=== PATIENT | female | born 1960 | race Caucasian/White ===

== ENCOUNTER 2023-06-18 16:17 | Outpatient (CLI) | payer OTHER, SELFPAY ==
--- NOTE | ~2023-06-18 | XR_ITS ---
EXAM: XR tibia fibula RT 2V DATE: 06/18/2023 16:55 HISTORY: BLUNT TRAUMA OF RIGHT LOWER LEG . COMPARISON: None available. FINDINGS: Normal mineralization. No fracture or dislocation. No lytic or blastic lesion. Moderate de generative change in the right knee. No erosion or periosteal change. Soft tissues within normal limi ts. IMPRESSION: Unremarkable right tibia/fibular radiograph findings. Reviewed, dictated and finalized at location K. WARE DEVELOPER INTERN
--- NOTE | ~2023-06-18 | XR_ITS ---
EXAM: XR lumbar spine 2-3V DATE: 06/18/2023 16:55 HISTORY: HIP PAIN,ACUTE RIGHT, PT FELL . COMPARISON: None available. FINDINGS: Severe lumbar scoliosis. 5 nonrib-bearing lumbar-type vertebral bodies. Pedicles intact. N ormal vertebral body alignment. Vertebral body heights preserved. Multilevel severe degenerative disc disease. Severe facet arthropathy in the lower lumbar spine. No fracture or dislocation. IMPRESSION: No acute fracture or traumatic malalignment detected in the lumbar spine. Reviewed, dictated and finalized at location K. ARGE MILL OPERATOR
--- NOTE | ~2023-06-18 | XR_ITS ---
EXAM: XR pelvis 1-2V, XR hip RT min 2V DATE: 06/18/2023 16:55 HISTORY: HIP PAIN, ACUTE, RIGHT . COMPARISON: None available. FINDINGS: Normal mineralization. No fracture or dislocation. No lytic or blastic lesion. Lumbar dege nerative disc disease. Mild bilateral hip osteoarthritis. Moderate osteitis pubis. No erosion or jorge osteal change. Soft tissues within normal limits. IMPRESSION: No acute osseous finding in the pelvis or right hip. Reviewed, dictated and finalized at location K. ORATIVE ART EMBALMER IMPRESSION: No acute osseous finding in the pelvis or right hip.
--- NOTE | ~2023-06-18 | XR_ITS ---
EXAM: XR knee RT 3V DATE: 06/18/2023 16:55 HISTORY: HIP PAIN,ACUTE RIGHT . COMPARISON: None available. FINDINGS: Decreased mineralization. No fracture or dislocation. No lytic or blastic lesion. Moderate medial joint space narrowing. Moderate tricompartmental osteophytosis. No erosion or periosteal holliday ge. Soft tissues within normal limits. IMPRESSION: Moderate tricompartmental right knee osteoarthritis. Reviewed, dictated and finalized at location K. DE SALES REPRESENTATIVE
== END 2023-06-18 16:18 | disposition home or self-care (01) ==
PROVIDERS: PCP Family Medicine; Visit Provider Family Medicine
DX: M25.551 Pain in right hip (principal); S89.91XA Unspecified injury of right lower leg, initial encounter; X58.XXXA Exposure to other specified factors, initial encounter; M17.11 Unilateral primary osteoarthritis, right knee
CPT/HCPCS: 72100; 72170; 73502; 73562; 73590

== ENCOUNTER 2024-05-26 13:05 | Outpatient (CLI) | payer OTHER, SELFPAY ==
--- NOTE | ~2024-05-26 | MM_ITS ---
EXAMINATION: MM screening [place] BI w zeb HISTORY: Screening TECHNIQUE: Craniocaudal and mediolateral oblique 3-D tomosynthesis images were obtained and synthetic 2-D images were generated. CAD analysis was submitted and interpreted. COMPARISON: No prior mammogram is available for comparison at this institution. BREAST PARENCHYMAL COMPOSITION: Not dense: There are scattered areas of fibroglandular density. FINDINGS: There are focal asymmetries in the upper outer quadrant of the right breast, posterior thir d. The left breast is stable without evidence for malignancy. IMPRESSION: 1. Right breast asymmetry upper outer quadrant, posterior third. 2. Additional mammographic views and possible breast ultrasound are recommended. BI-RADS Category 0: Incomplete: Needs additional imaging evaluation. Reviewed, dictated and finalized at location B. MAN IMPRESSION: 1. Right breast asymmetry upper outer quadrant, posterior third. 2. Additional mammographic views and possible breast ultrasound are recommended . BI-RADS Category 0: Incomplete: Needs additional imaging evaluation.
== END 2024-05-26 13:06 | disposition home or self-care (01) ==
PROVIDERS: PCP Family Medicine; Visit Provider Family Medicine
DX: Z12.31 Encounter for screening mammogram for malignant neoplasm of breast (principal); R92.8 Other abnormal and inconclusive findings on diagnostic imaging of breast
CPT/HCPCS: 77063; 77067

== ENCOUNTER 2024-06-01 09:55 | Outpatient (CLI) | payer OTHER, SELFPAY ==
--- NOTE | ~2024-06-01 | MMUS_ITS ---
EXAMINATION: MM diagnostic [place] RT w zeb, US breast RT limited HISTORY: Follow-up right breast asymmetry TECHNIQUE: Additional 3-D tomosynthesis images of the right breast were performed and synthetic 2-D i mages were generated. CAD analysis was submitted and interpreted. High resolution Limited right breas t ultrasound was performed. COMPARISON: 05/26/2024 BREAST PARENCHYMAL COMPOSITION: Not dense: There are scattered areas of fibroglandular density. FINDINGS: MAMMOGRAPHIC FINDINGS: There is a small intramammary lymph node in the mid lateral aspect of the right breast. Focal area of asymmetry in the upper outer quadrant is compatible with superimposed dense fibroglandular tissue. N o discrete mass at this location. No architectural distortion. There are no suspicious calcifications . ULTRASOUND: Limited right breast ultrasound: Normal heterogeneous echotexture without focal solid or cystic mass. IMPRESSION: 1. No evidence for malignancy in the right breast. 2. Routine yearly screening mammogram and regular clinical breast examination are recommended. BI-RADS Category 2: Benign finding(s). Reviewed, dictated and finalized at location B. N DRILLER IMPRESSION: 1. No evidence for malignancy in the right breast. 2. Routine yearly screening mammogram and regular clinical breast examination a re recommended. BI-RADS Category 2: Benign finding(s).
== END 2024-06-01 09:56 | disposition home or self-care (01) ==
PROVIDERS: PCP Family Medicine; Visit Provider Family Medicine
DX: R92.8 Other abnormal and inconclusive findings on diagnostic imaging of breast (principal)
CPT/HCPCS: 76642; 77061; 77065; G0279

== ENCOUNTER 2024-10-21 08:02 | Outpatient (CLI) | payer OTHER, SELFPAY ==
--- NOTE | ~2024-10-21 | US_ITS ---
Pelvic ultrasound. Clinical History: Ovarian cyst Technique: Realtime transabdominal and transvaginal scanning of the pelvis was performed. Color flow Doppler and Doppler spectral analysis were performed. Findings: The uterus is anteverted. The endometrial stripe has a thickness of 3 mm. No focal mass is identified. The right ovary measures 2.7 x 1.6 x 1.5 cm. No significant right ovarian or adnexal mass is seen. The left ovary is not visualized. No significant left ovarian or adnexal mass is seen. There is no evidence of free fluid in the cul de sac. Impression: No significant abnormality seen. Reviewed, dictated and finalized at location . Impression: No significant abnormality seen.
--- OUTSIDE RECORDS SUMMARY | 2024-10-21 08:06 | XMS_ITS ---
Author Organization Unknown Address [address] [place] [phone] Phone Care Team Providers Care Librarian Helper Name Role Phone LEAH LAMAR Attending Unavailable ROSELYN Almendarez Primary Unavailable Immunization Immunization Date Status Additional Notes Code Code System Tdap 03/27/2022 Completed 115 CVX Influenza, split virus, quadrivalent, preservative 06/13/2021 Completed 158 C VX Influenza, split virus, quadrivalent, preservative 03/27/2022 Completed 158 C VX Influenza, split virus, quadrivalent, preservative 05/02/2023 Completed 158 C VX zoster recombinant 04/12/2022 Completed 187 CVX zoster recombinant 08/28/2022 Completed 187 CVX COVID-19, mRNA, LNP-S, PF, 1 00 mcg/0.5mL dose or 50 mcg/0.25mL dose 06/24/2020 Completed 207 CVX COVID-19, mRNA, LNP-S, PF, 1 00 mcg/0.5mL dose or 50 mcg/0.25mL dose 07/22/2020 Completed 207 CVX COVID-19, mRNA, LNP-S, PF, 1 00 mcg/0.5mL dose or 50 mcg/0.25mL dose 04/25/2021 Completed 207 CVX COVID-19, mRNA, LNP-S, PF, 1 00 mcg/0.5mL dose or 50 mcg/0.25mL dose 02/08/2022 Completed 207 CVX COVID-19, mRNA, LNP-S, bivalent, PF, 50 mcg/0.5 mL or 25mcg/0.25 mL dose 10/16/2022 Completed 229 CVX COVID-19, mRNA, LNP-S, PF, 5 0 mcg/0.5 mL 06/04/2023 Completed 312 CVX Social History Type Status Start Date End Date Code Code Syst em Smoking History Never smoker (Never Smoked) [id number] SNOMED CT Sex Female Hospital Discharge Instructions Should you have any questions prior to discharge, please contact a member of your healthcare team. If you have left the hospital and have any questions, please contact your primary care physician. Reason For Referral No Data Found Plan of Treatment No Data Found Encounters Encounter Diagnosis Start Date Code Code Sys tem Trochanteric bursitis, right hip 05/24/2024 SNOMED-CT Personal Care Team Section Performer Name Performer Role Active Date Inactive Da REILLY Trejo PCP - Primary care physician 2020-10-20 2024-04-21 REILLY NAVARRO PCP - Primary care physician 2024-04-21 2024-04-21 REILLY NAVARRO PCP - Primary care physician 2024-04-21 2024-04-21
--- OUTSIDE RECORDS SUMMARY | 2024-10-21 08:06 | XMS_ITS | Data Portability ---
Author Organization [facility], [address] [place] [address] ([place]) Address [address] [place] [id number] Care Team Providers Care Software Design Engineer Name Role Phone NIRALI DEMPSEY Primary Care Provider Assessment Encounter Date Assessment Date Assessment LastModified by Organization Details LastModified Time 01/07/2024 01/07/2024 1. The following diagnosis is categorized as a SELF-LIMITED OR MINOR PROBLEM: We discussed the fact that lentigines are actinically induced and that they are benign. We discussed the fact that they should be watched carefully for change. We discussed the importance of photoprotection using protective clothing and sunscreen with SPF thirty or higher on a regular basis. 2.The following diagnosis is categorized as a CHRONIC ILLNESS (STABLE/At Pt Goal): Benign nevi. We discussed the importance of watching for new and/or changing lesions. We discussed the worrisome changes to watch for that could indicate a melanoma. We discussed the importance of photoprotection using protective clothing and sunscreen with OTC SPF 30 or higher. Avoid peak hours of sun exposure (10am-3pm). We discussed the importance of regular self-skin examinations. 3. The following diagnosis is categorized as a SELF LIMITED OR MINOR PROBLEM: Seborrheic keratosis,: We discussed the fact that these are benign lesions requiring no treatment. We discussed the fact that removal would be considered a cosmetic procedure and would not be covered by insurance. The patient was advised that more such lesions may develop. The patient is not bothered by the lesions and does not wish to have them treated. We will observe. OTC tx for SK: wart removers, dermabrasion, 35% hydrogen peroxide daily with paint or makeup brush 4. The following diagnosis is categorized as a CHRONIC ILLNESS : History of melanoma, superficial spreading, 0.5 mm on the L posterior shoulder. We discussed the importance of regular skin examinations by a physician as well as monthly self-skin examinations. No evidence of recurrence in previously treated areas. We discussed the worrisome changes to watch for in skin lesions. We discussed the importance of watching for new and/or changing lesions. We discussed the importance of photoprotection using protective clothing and sunscreen with SPF thirty or higher. Pt was instructed to call the office if develops a lesion which grows or changed rapidly. Advised at least annual eye and dental exams as well as genital exams if pt defers. 5. The following diagnosis is categorized as a CHRONIC ILLNESS: Atopic dermatitis/Eczema, component of ACD (possibly from glasses? plans to get new ones with titanium): Discussed diagnosis and treatment options. Female patients advised to stop all medication if planning or gets and to let us know. - Recommend short, lukewarm baths daily. Right when get out of bath, pat dry and apply a bland moisturizer to entire body(ideally, Vaseline or petroleum jelly - Recommend dove unscented white soap only. Avoid harsh soaps such as [place] - Avoid fragranced products, perfumes, candles, air fresheners, no dryer sheets - Recommend free and clear shampoo, free and clear detergent. [place] patch testing was read at 72 hours. She reacted to: IR to AP124, methylisothiazolinone 2+ NA11 bacitractin 2+NA38 fragrance mix 8% 1+:NA 52 nickel sulfate - reviewed food high in nickel to avoid (licorice, margarine, cocoa, nuts, beans). Avoid jewelry with nickel. Discussed it also cross rects with gold, cobalt and chromate-avoid these, SUSPECT GLASSES are contributing to ACD on eyelids-discuss with eye dr new glasses free of these metals. Also suggest hearing aids without these metals 2+NA61, tixocortol 21 pivalate 1% 2+NA96 propylene glycol-stop topical RX steroids previously given IR to NA71 propolis IR to fragrance mix II 14% neomycin sulphate 20% PRESCRIPTION DRUG MANAGEMENT was performed including discussion with the patient and/or family member that may include dose, expectations of treatment including potential side effects, review of patient response, and when necessary or clinically appropriate change in medication or dosage. For topical therapy discussed side effects may include irritation/redness, burning sensation upon application, dryness/desquamation, and the potential for sensitization. - start RX tacrolimus 0.1%/ Niacinamide 1% BID to affected areas. Warned of initial burning sensation. Discussed black box warning. - D/c Fluocinolone and betamethasone due to allergy to propylene glycol. AVOID OPZELURA since it also has propylene glycol in it Will make ACD changes, if not at goal consider RX dupixent I asked pt to return in 3-6 months for stephanie. Pt will call with any questions or concerns in the meantime. [email or web address] Not available 01/07/2024 18:20:39 04/12/2024 04/12/2024 1. The following diagnosis is categorized as a SELF-LIMITED OR MINOR PROBLEM: We discussed the fact that lentigines are actinically induced and that they are benign. We discussed the fact that they should be watched carefully for change. We discussed the importance of photoprotection using protective clothing and sunscreen with SPF thirty or higher on a regular basis. 2. The following diagnosis is categorized as a CHRONIC ILLNESS (STABLE/At Pt Goal): Benign nevi. We discussed the importance of watching for new and/or changing lesions. We discussed the worrisome changes to watch for that could indicate a melanoma. We discussed the importance of photoprotection using protective clothing and sunscreen with OTC SPF 30 or higher. Avoid peak hours of sun exposure (10am-3pm). We discussed the importance of regular self-skin examinations. 3. The following diagnosis is categorized as a SELF LIMITED OR MINOR PROBLEM: Seborrheic keratosis,: We discussed the fact that these are benign lesions requiring no treatment. We discussed the fact that removal would be considered a cosmetic procedure and would not be covered by insurance. The patient was advised that more such lesions may develop. The patient is not bothered by the lesions and does not wish to have them treated. We will observe. OTC tx for SK: wart removers, dermabrasion, 35% hydrogen peroxide daily with paint or makeup brush 4. The following diagnosis is categorized as a CHRONIC ILLNESS : History of melanoma, superficial spreading, 0.5 mm on the L posterior shoulder. We discussed the importance of regular skin examinations by a physician as well as monthly self-skin examinations. No evidence of recurrence in previously treated areas. We discussed the worrisome changes to watch for in skin lesions. We discussed the importance of watching for new and/or changing lesions. We discussed the importance of photoprotection using protective clothing and sunscreen with SPF thirty or higher. Pt was instructed to call the office if develops a lesion which grows or changed rapidly. Advised at least annual eye and dental exams as well as genital exams if pt defers. 5. The following diagnosis is categorized as a CHRONIC ILLNESS: not a tgoal Atopic dermatitis/Eczema, component of ACD (possibly from glasses?),BSA>10%, SCORing> 25%: Discussed diagnosis and treatment options. Female patients advised to stop all medication if planning or gets and to let us know. - Recommend short, lukewarm baths daily. Right when get out of bath, pat dry and apply a bland moisturizer to entire body(ideally, Vaseline or petroleum jelly - Recommend dove unscented white soap only. Avoid harsh soaps such as [place] - Avoid fragranced products, perfumes, candles, air fresheners, no dryer sheets - Recommend free and clear shampoo, free and clear detergent. [place] patch testing was read at 72 hours. She reacted to: IR to AP124, methylisothiazolinone 2+ NA11 bacitractin 2+NA38 fragrance mix 8% 1+:NA 52 nickel sulfate - reviewed food high in nickel to avoid (licorice, margarine, cocoa, nuts, beans). Avoid jewelry with nickel. Discussed it also cross rects with gold, cobalt and chromate-avoid these, SUSPECT GLASSES are contributing to ACD on eyelids-discuss with eye dr new glasses free of these metals. Also suggest hearing aids without these metals 2+NA61, tixocortol 21 pivalate 1% 2+NA96 propylene glycol-stop topical RX steroids previously given IR to NA71 propolis IR to fragrance mix II 14% neomycin sulphate 20% - D/c Fluocinolone and betamethasone due to allergy to propylene glycol. AVOID OPZELURA since it also has propylene glycol in it Pt tried switch to titanium eyeglasses but reports caused painful ulcers? She now is trying plant based eyeglasses to see if helps? Pt has tried and failed RX tacrolimus, RX fluocinolone, RX betamethasone. PRESCRIPTION DRUG MANAGEMENT was performed including discussion with the patient and/or family member that may include dose, expectations of treatment including potential side effects, review of patient response, and when necessary or clinically appropriate change in medication or dosage. For topical therapy discussed side effects may include irritation/redness, burning sensation upon application, dryness/desquamation, and the potential for sensitization. - Continue RX tacrolimus 0.1%/ Niacinamide 1% BID to affected areas. Warned of initial burning sensation. Discussed black box warning. Pt has no known asthma or parasite infection. No extensive hx of HSV. - Reviewed A/R/B of dupilumab([employer]). Reviewed side effects of increased HSV infection, injection site reaction, immunogenicity, conjunctivitis, eye itching, eosinophilia, hypersensitivity reaction, keratitis, serum sickness, serum sickness-like reaction, urticarial xerophthalmia. - Patient advised that NO live vaccination while on this medication. Advised pt to update his vaccines prior to starting. Obtain flu, up-to-date tetanus. Consider pneumonia (especially >65 years old) and shingles (>50 years old) . Some forms of flu and shingle are live so check with PCP. - Plan to start RX dupilumab 600 mg sc x 1 initial dose followed by 300 mg q.2 weeks. (pending insurance approval and [place]) 6. The following diagnosis is categorized as an UNDIAGNOSED NEW PROBLEM WITH UNCERTAIN PROGNOSIS: Neoplasm of uncertain origin: brown macule 1mm with ? surrounding pearly papule on the right nasal sidewall. Discussed DDX: early BCC vs SK, present for 1 week Discussed treatment options including close observation verses skin biopsy. Explained the only way for definitive diagnosis is with skin biopsy. Discussed risks of skin biopsy include but are not limited to bleeding, scar, and infection. Discussed delay in biopsy and diagnosis can result in growth, deep invasion, metastasis, and . After discussion of the risks and benefits of a skin biopsy verses observation, patient elected to observe. Patient declines biopsy at this time and prefers to monitor. Advised patient to monitor for changes in size, shape, or color. Advised patient to monitor for any associated pain, bleeding, numbness, itching, or any other changes. Advised patient that if lesion changes to call our office so that we can re-evaluate lesion at this time. Skin cancer warning sign hand out was reviewed and provided to patient. All questions were answered. Pt advised to wear sunscreen spf 30 or higher daily, hats, sunprotective clothing. I asked pt to return TBSE due in 6 mo (September) and/or pending the start of dupixent sooner. Pt will call with any questions or concerns in the meantime. [email or web address] Not available 04/14/2024 16:51:44 07/12/2024 07/12/2024 Patient was inje cted subcutaneously in the left and right upper arm. Patient was advised to call the office if experiencing fever, chills, flu-like symptoms, or skin rash. Patient also asked to report any medical problem of new onset while on Dupixent. Patient was asked to call the office if experiencing upper respiratory infection, skin infection, sinus infection, pneumonia, or any other infectious condition. Patient was instructed in proper technique for performing subcutaneous injections at home. All of their questions and concerns were answered. [email or web address] Not available 07/12/2024 10:44:12 08/11/2024 08/11/2024 1. The following diagnosis is categorized as a CHRONIC ILLNESS: improving Atopic dermatitis/Eczema, component of ACD (possibly from glasses?),prior to RX dupixnt BSA>10%, SCORing> 25%, today BSA 5%: Discussed diagnosis and treatment options. Female patients advised to stop all medication if planning or gets and to let us know. - Recommend short, lukewarm baths daily. Right when get out of bath, pat dry and apply a bland moisturizer to entire body(ideally, Vaseline or petroleum jelly - Recommend dove unscented white soap only. Avoid harsh soaps such as [place] - Avoid fragranced products, perfumes, candles, air fresheners, no dryer sheets - Recommend free and clear shampoo, free and clear detergent. [place] patch testing was read at 72 hours. She reacted to: IR to AP124, methylisothiazolinone 2+ NA11 bacitractin 2+NA38 fragrance mix 8% 1+:NA 52 nickel sulfate - reviewed food high in nickel to avoid (licorice, margarine, cocoa, nuts, beans). Avoid jewelry with nickel. Discussed it also cross rects with gold, cobalt and chromate-avoid these, SUSPECT GLASSES are contributing to ACD on eyelids-discuss with eye dr new glasses free of these metals. Also suggest hearing aids without these metals 2+NA61, tixocortol 21 pivalate 1% 2+NA96 propylene glycol-stop topical RX steroids previously given IR to NA71 propolis IR to fragrance mix II 14% neomycin sulphate 20% - D/c Fluocinolone and betamethasone due to allergy to propylene glycol. AVOID OPZELURA since it also has propylene glycol in it Pt tried switch to titanium eyeglasses but reports caused painful ulcers? She now is trying plant based eyeglasses to see if helps-seems to help Pt has tried and failed RX tacrolimus, RX fluocinolone, RX betamethasone. PRESCRIPTION DRUG MANAGEMENT was performed including discussion with the patient and/or family member that may include dose, expectations of treatment including potential side effects, review of patient response, and when necessary or clinically appropriate change in medication or dosage. For topical therapy discussed side effects may include irritation/redness, burning sensation upon application, dryness/desquamation, and the potential for sensitization. - Continue RX tacrolimus 0.1%/ Niacinamide 1% BID to affected areas. Warned of initial burning sensation. Discussed black box warning. Pt has no known asthma or parasite infection. No extensive hx of HSV. - Reviewed A/R/B of dupilumab([employer]). Reviewed side effects of increased HSV infection, injection site reaction, immunogenicity, conjunctivitis, eye itching, eosinophilia, hypersensitivity reaction, keratitis, serum sickness, serum sickness-like reaction, urticarial xerophthalmia. - Patient advised that NO live vaccination while on this medication. Advised pt to keep vaccines up todate - Contnue RX dupilumab 300 mg q.2 weeks. This encounter is considered to have a visit complexity inherent to evaluation and management associated with medical care services that serve as the continuing focal point for all needed health care services and/or with medical care services that are part of ongoing care related to a patient's single, serious condition or a complex condition. Physician-patient engagement in a continuous and active collaborative plan of care was performed and is expected to be performed with consistency and continuity over time. This includes patient education, discussion of expectations and responsibilities, shared decision-making around therapeutic goals, and shared commitments to achieve these goals. Care furnished during this visit is NOT of a discrete, routine, or time-limited nature. I asked pt to return TBSE/melanoma due in 6 mo (September) and in November for dupixent follow up. Pt will call with any questions or concerns in the meantime. [email or web address] Not available 08/11/2024 20:38:26 09/29/2024 09/29/2024 1. The following diagnosis is categorized as a SELF-LIMITED OR MINOR PROBLEM: We discussed the fact that lentigines are actinically induced and that they are benign. We discussed the fact that they should be watched carefully for change. We discussed the importance of photoprotection using protective clothing and sunscreen with SPF thirty or higher on a regular basis. 2. The following diagnosis is categorized as a CHRONIC ILLNESS (STABLE/At Pt Goal): Benign nevi. We discussed the importance of watching for new and/or changing lesions. We discussed the worrisome changes to watch for that could indicate a melanoma. We discussed the importance of photoprotection using protective clothing and sunscreen with OTC SPF 30 or higher. Avoid peak hours of sun exposure (10am-3pm). We discussed the importance of regular self-skin examinations. 3. The following diagnosis is categorized as a SELF LIMITED OR MINOR PROBLEM: Seborrheic keratosis,: We discussed the fact that these are benign lesions requiring no treatment. We discussed the fact that removal would be considered a cosmetic procedure and would not be covered by insurance. The patient was advised that more such lesions may develop. The patient is not bothered by the lesions and does not wish to have them treated. We will observe. OTC tx for SK: wart removers, dermabrasion, 35% hydrogen peroxide daily with paint or makeup brush 4. The following diagnosis is categorized as a CHRONIC ILLNESS : History of melanoma, superficial spreading, 0.5 mm on the L posterior shoulder. We discussed the importance of regular skin examinations by a physician as well as monthly self-skin examinations. No evidence of recurrence in previously treated areas. We discussed the worrisome changes to watch for in skin lesions. We discussed the importance of watching for new and/or changing lesions. We discussed the importance of photoprotection using protective clothing and sunscreen with SPF thirty or higher. Pt was instructed to call the office if develops a lesion which grows or changed rapidly. Advised at least annual eye and dental exams as well as genital exams if pt defers. bilateral non-tender lymph nodes in the neck 5. The following diagnosis is categorized as an UNDIAGNOSED NEW PROBLEM WITH UNCERTAIN PROGNOSIS: Neoplasm of uncertain origin: brown macule 1mm with ? surrounding pearly papule on the right nasal sidewall. Discussed DDX: early BCC vs SK - unchanged Discussed treatment options including close observation verses skin biopsy. Explained the only way for definitive diagnosis is with skin biopsy. Discussed risks of skin biopsy include but are not limited to bleeding, scar, and infection. Discussed delay in biopsy and diagnosis can result in growth, deep invasion, metastasis, and . After discussion of the risks and benefits of a skin biopsy verses observation, patient elected to observe. Patient declines biopsy at this time and prefers to monitor. Advised patient to monitor for changes in size, shape, or color. Advised patient to monitor for any associated pain, bleeding, numbness, itching, or any other changes. Advised patient that if lesion changes to call our office so that we can re-evaluate lesion at this time. Skin cancer warning sign hand out was reviewed and provided to patient. All questions were answered. Pt advised to wear sunscreen spf 30 or higher daily, hats, sunprotective clothing. pertinent hx (Not assessed today) 6. Atopic dermatitis/Eczema, component of ACD (possibly from glasses?),prior to RX dupixnt BSA>10%, SCORing> 25%, today BSA 5%: Discussed diagnosis and treatment options. Female patients advised to stop all medication if planning or gets and to let us know. - Recommend short, lukewarm baths daily. Right when get out of bath, pat dry and apply a bland moisturizer to entire body(ideally, Vaseline or petroleum jelly - Recommend dove unscented white soap only. Avoid harsh soaps such as [place] - Avoid fragranced products, perfumes, candles, air fresheners, no dryer sheets - Recommend free and clear shampoo, free and clear detergent. [place] patch testing was read at 72 hours. She reacted to: - IR to AP124, methylisothiazolinone - 2+ NA11 bacitractin - 2+NA38 fragrance mix 8% - 1+:NA 52 nickel sulfate - reviewed food high in nickel to avoid (licorice, margarine, cocoa, nuts, beans). Avoid jewelry with nickel. Discussed it also cross rects with gold, cobalt and chromate-avoid these, SUSPECT GLASSES are contributing to ACD on eyelids-discuss with eye dr new glasses free of these metals. Also suggest hearing aids without these metals - 2+NA61, tixocortol 21 pivalate 1% - 2+NA96 propylene glycol-stop topical RX steroids previously given - IR to NA71 propolis - IR to fragrance mix II 14% - neomycin sulphate 20% - D/c Fluocinolone and betamethasone due to allergy to propylene glycol. AVOID OPZELURA since it also has propylene glycol in it Pt tried switch to titanium eyeglasses but reports caused painful ulcers? She now is trying plant based eyeglasses to see if helps-seems to help Pt has tried and failed RX tacrolimus, RX fluocinolone, RX betamethasone. PRESCRIPTION DRUG MANAGEMENT was performed including discussion with the patient and/or family member that may include dose, expectations of treatment including potential side effects, review of patient response, and when necessary or clinically appropriate change in medication or dosage. For topical therapy discussed side effects may include irritation/redness, burning sensation upon application, dryness/desquamation, and the potential for sensitization. Pt has no known asthma or parasite infection. No extensive hx of HSV. - Reviewed A/R/B of dupilumab([employer]). Reviewed side effects of increased HSV infection, injection site reaction, immunogenicity, conjunctivitis, eye itching, eosinophilia, hypersensitivity reaction, keratitis, serum sickness, serum sickness-like reaction, urticarial xerophthalmia. - Patient advised that NO live vaccination while on this medication. Advised pt to keep vaccines up todate - Contnue RX dupilumab 300 mg q.2 weeks. This encounter is considered to have a visit complexity inherent to evaluation and management associated with medical care services that serve as the continuing focal point for all needed health care services and/or with medical care services that are part of ongoing care related to a patient's single, serious condition or a complex condition. Physician-patient engagement in a continuous and active collaborative plan of care was performed and is expected to be performed with consistency and continuity over time. This includes patient education, discussion of expectations and responsibilities, shared decision-making around therapeutic goals, and shared commitments to achieve these goals. Care furnished during this visit is NOT of a discrete, routine, or time-limited nature. I asked pt to return in November for dupixent follow up with MD as scheduled. Pt will call with any questions or concerns in the meantime. [email or web address] Not available 09/29/2024 12:25:46 Plan of Treatment Reminders Order Date Submit Date Provider Last Modified By Organization Details Last Modified Time Details Appointments Establish ed Patient 10.EST 2024 11:00A M Dr. Karla Francois Not available Not available Not available Lab None recorded. Referral None recorded. Procedures None recorded. Surgeries None recorded. Imaging None recorded. Medication Orders None recorded. Patient TargetsNo targets recorded. Patient InstructionsNo instructions recorded. Reason for Referral None Reported. Problems Name Problem SNOMED Code Status Onset Date Resolution Date Notes Provider Name and Address Organization Details Recorded Time Adult atopic dermatitis 774290737 Active 2024 Adilene Lenz [facility] 5 10:41:21 Lentigo - freckle [id number] Active 2024 Loren Tomasz [facility] 5 11:00:43 Melanocytic nevus of right upper limb 753046602 Active 2024 Loren Tomasz [facility] 5 11:00:43 Melanocytic nevus of left upper limb 5720441128657 03 Active 2023 Yenny Erlinda [facility] 4 16:40:40 Melanocytic nevus of right lower limb 5520529813881 08 Active 2023 Yenny Erlinda [facility] 4 16:40:45 Seborrheic keratosis 918969648 Active 2023 Yenny Erlinda [facility] 4 16:40:49 Atopic dermatitis 41781254 Active 2023 Tiffany Garcia [facility] 5 14:24:46 Problem Notes None recorded. Medical Equipment None Reported. Allergies No known drug allergies Medications Name Sig Start Date Stop Date Status Note LastModified by Organization Details LastModified Time azithromycin 250 mg tablet TAKE 2 TABLETS BY MOUTH ON DAY 1, AND THEN TAKE 1 TABLET BY MOUTH ONCE A DAY ON DAY 2 THROUGH DAY 5 09/29 completed Not Available Not Available Not Available polymyxin B sulfate 10,000 unit-trimeth oprim 1 mg/mL eye drops INSTILL 1 DROP INTO EACH EYE EVERY 3 HOURS WHILE AWAKE FOR 7 DAYS - DO NOT EXCEED 6 DOSES IN 24 HOURS - 09/29 completed Not Available Not Available Not Available naproxen 500 mg tablet TAKE 1 TABLET BY MOUTH TWICE DAILY WITH MEALS active Not Available Not Available No t Available amoxicillin 875 mg-potassium clavulanate 125 mg tablet TAKE 1 TABLET BY MOUTH TWICE DAILY 09/29 completed Not Available Not Available Not Available cyclobenzapr ine 5 mg tablet TAKE 1 TABLET BY MOUTH AT BEDTIME NEEDED active Not Available Not Available No t Available Dupixent 300 mg/2 mL subcutaneous syringe 2024 active Not Available Not Available Not Avai lable Dupixent 300 mg/2 mL subcutaneous pen injector INJECT 300 MG SQ EVERY 2 WEEKS 2024 active Not Available Not Available Not Avai lable Vitals Date Recorded Body weight Provider Name an d Address Organization Details Last Updated DateTime 04/12/2024 35302.59 g Jessica Ford [facility] 04/12/2024 16:30:57 Social History None recorded. Functional Status None recorded. Mental Status None recorded. Family History Nothing Reported. Medical History No medical history recorded. Gynecological HistoryNo gynecological history recorded. Obstetrics History GPAL:G 0 P 0 0 0 0 Past Encounters Encounter ID Performer Location Encounter Start Date Encounter Closed Date Diagnosis/Indication Diagnosis SNOMED-CT Code Diagnosis ICD10 Code Diagnosis Note [id number] Karla Francois MD [facility] ([place] [address] [place] [address] 01/07/2024 16:07:48 01/07/2024 16:52:19 Melanocytic nevus of left upper limb [id number] 65544 D22.62 Melanocyti c nevus of right lower limb 6049869302 81801 D22.71 Seborrheic keratosis 394 592519 L82.1 History of Malignant melanoma 008621921 Z85.89 Atopic dermatitis 216795 01 L20.9 [id number] Karla Francois MD [facility] [place] [address] [place] [address] 04/12/2024 16:17:43 04/12/2024 17:24:47 Melanocytic nevus of left upper limb 2846828060 24388 D22.62 Melanocyti c nevus of right lower limb 3664606636 51729 D22.71 Seborrheic keratosis 394 741520 L82.1 Atopic dermatitis 546521 01 L20.9 [id number] Karla Francois MD [facility] [place] [address] [place] [address] 07/12/2024 09:58:47 07/12/2024 10:50:43 Adult atopic dermatitis 756176458 L20.9 Medication prescription education, guidance and counseling 896564564 Z71.89 [id number] Karla Francois MD [facility] [place] [address] [place] [address] 08/11/2024 11:32:58 08/11/2024 12:52:26 Atopic dermatitis 54432950 L20.9 [id number] Karla Davidson APRN, ASSEMBLER [employer] [facility] ([place] [address] [place] [address] 09/29/2024 10:06:46 09/29/2024 11:15:02 Melanocytic nevus of right upper limb 061805956 D22.61 Melanocyti c nevus of right lower limb 2127236399 87203 D22.71 Seborrheic keratosis 394 198559 L82.1 Lentigo - freckle 594537 006 L81.4 History of Malignant melanoma 159742833 Z85.820 Adult atop ic dermatitis 382731140 L20.9 Health Concerns Section Related Observation LastModified by Organization Detai ls LastModified Time None Recorded Concern Status LastModified by Organization Details LastModified Time None Recorded Advance Directives Directive None Recorded Payers Encounter Date Sequence Insurance Name Policy Number Policy Jurado Covered Member ID Jurado Member ID Guarantor Name 01/07/2024 1 [employer] [facility] BENEFITS PLAN [id number] Yoli A Harber [id number] OI Yoli A Harber 04/12/2024 1 [facility] B[facility] [id number] Yoli A Harber [id number] OI Yoli A Harber 07/12/2024 1 [facility] B[facility]AN [id number] Yoli A Harber [id number] OI Yoli A Harber 08/11/2024 1 [facility] B[facility] [id number] Yoli A Harber [id number] OI Yoli A Harber 09/29/2024 1 [facility] BEN[facility]AN [id number] Yoli A Harber [id number] OI Yoli A Harber Notes Date Note Type Note Provider Name and Address Organization Details Recorded Time 01/07/2024 text/html [facility] with HX melanoma. Denies concerns Karla Francois MD [address] [place] [address], [phone], [facility] 01/07/2024 18:21:02 04/12/2024 text/html TBSE hx melanoma and atopic dermatitis on ears/face Karla Francois MD [address] [place] [address], [phone], [facility] 04/14/2024 16:51:47 07/12/2024 text/html Pt presents for training of Dupixent injections. Karla Francois MD [address] [place] [address], [phone], [facility] 07/12/2024 16:45:01 08/11/2024 text/html Dupixent f/u Karla Francois MD [address] [place] [address], [phone], [facility] 08/11/2024 20:38:46 09/29/2024 text/html TBSE Patient was informed that Dr. Hodge is the supervising physician for Karla Davidson (Derm) and the physician is available for consultation if needed. Karla Davidson, VETERINARIAN HELPER, [employer]SEM[employer]ER [employer] [address] [place] [address], [phone], [facility] 09/29/2024 12:26:15 OBGyn Episode No OBEpisode recorded.
--- OUTSIDE RECORDS SUMMARY | 2024-10-21 08:06 | XMS_ITS | Clinical Summary ---
Author Organization [facility] Address [address] [place] [address] Phone Care Team Providers Care Wire Hanger Name Role Phone Unavailable Primary Care Provider Unavailabl e Encounters Date Type Department Care Team Description 10/04/2024 Abstract [facility] Neurosurgery S [facility] [address] [facility] [place] [address] Provider, Abstract from Last 3 Months Social History Tobacco Use Types Packs/Day Years Used Date Smoking Tobacco: Never Assessed Comments Unknown Sex and Gender Information Value Date Recorded Sex Assigned at Not on file Legal Sex Female 8:44 AM CDT Gender Identity Not on file Sexual Orientation Not on file Plan of Treatment Upcoming Encounters Date Type Department Care Team (Late st Contact Info) Description 10/27/2024 9:45 AM CDT Office Visit [facility] Neurosurgery S [facility] [address] [facility] [address] [place] [address] Fernando Lou MD [address] [facility] [address] [place] [address] Health Maintenance Due Date Last Done Comments DTAP/TDAP/TD VACCINES (1 - Tdap) 01/07/1979 HPV/Cotest (21-29) 01/07/1981 CERVICAL CANCER SCREENING 01/07/1990 HPV/Cotest (30-65) 01/07/1990 PAP SMEAR 01/07/1990 BREAST CANCER SCREENING 2000 COLORECTAL SCREENING 01/07/2005 Colorectal Cancer Screening 01/07/2005 FIT-DNA Q 3 years 01/07/2005 FIT/FOBT Q 1 year 01/07/2005 Flex Sig/CT Colonography Q 5 years 01/07/2005 ZOSTER VACCINE (1 of 2) 01/07/2010 INFLUENZA VACCINE (#1) 2024 RSV VACCINE (60+ or ) (1 - 1-dose 75+ series) 01/07/2035
--- OUTSIDE RECORDS SUMMARY | 2024-10-21 08:06 | XMS_ITS | Encounter Summary ---
Author Organization [facility] Address [address] [place] [address] Care Team Providers Care Credentialing Analyst Name Role Phone Narendra Calderón MD Primary Care Provider Encounter Details Date Type Department Care Team (Late st Contact Info) Description 01/17/2016 Abstract [facility] [address] [place] [phone] Abstract, Doc [facility] Social History Tobacco Use Types Packs/Day Years Used Date Smoking Tobacco: Never Assessed Comments Unknown Sex and Gender Information Value Date Recorded Sex Assigned at Not on file Legal Sex Female 3:16 PM CDT Gender Identity Not on file Sexual Orientation Not on file documented as of this encounter Plan of Treatment Not on file documented as of this encounter Visit Diagnoses Not on filedocumented in this encounter Care Teams Credentialing Analyst Relationship Specialty Start Date End Date Narendra Calderón MD [address] [place] [address] PCP - General FAMILY PRACTICE 11/06/20 documented as of this encounter
--- OUTSIDE RECORDS SUMMARY | 2024-10-21 08:06 | XMS_ITS | Clinical Summary ---
Author Organization [facility] Address [address] [place] [address] Care Team Providers Care Poultry Processing Supervisor Name Role Phone Narendra Calderón MD Primary Care Provider [phone] Allergies No known active allergies Medications psyllium 51.7 % packet Take 1 packet by mouth daily as needed. Active Active Problems Problem Noted Date Diagnosed Date Complex regional pain syndro me type 1 of right lower extremity 12/20/2020 Closed fracture of base of f ifth metatarsal bone of right foot with routine healing 10/23/2020 Chest pain 01/17/2016 Sprain of anterior talofibul ar ligament of left ankle, subsequent encounter Family History Medical History Relation Comments No Known Problems Brother Diabetes Father Heart Attack Father Kidney Disease Father No Known Problems Maternal Grandfather Cancer Maternal Grandmother Alzheimers Mother Atrial fibrillation Mother No Known Problems Paternal Grandfather No Known Problems Paternal Grandmother No Known Problems Sister Relation Status Comments Brother Alive Father Maternal Grandfather Maternal Grandmother Mother Alive htn Paternal Grandfather Paternal Grandmother Sister Alive Social History Tobacco Use Types Packs/Day Years Used Date Smoking Tobacco: Never Smokeless Tobacco: Never Alcohol Use Standard Drinks/Week Comments Yes 0 (1 standard drink = 0.6 oz pur e alcohol) rarely Comments Unknown Sex and Gender Information Value Date Recorded Sex Assigned at Not on file Legal Sex Female 3:16 PM CDT Gender Identity Not on file Sexual Orientation Not on file 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 Not on file Not on file Not on file Last Filed Vital Signs Vital Sign Reading Time Taken Comments Blood Pressure 148/102 01/18/2016 9:23 AM CDT Pulse 58 01/18/2016 9:21 AM CDT Temperature - - Respiratory Rate 16 01/18/2016 9:21 AM CDT Oxygen Saturation - - Inhaled Oxygen Concentration - - Weight 81.6 kg (180 lb) 01/17/2021 3:23 PM CDT Height 167.6 cm (5' 6 ) 01/17/2021 3:23 PM CDT Body Mass Index 29.05 01/17/2021 3:23 PM CDT Plan of Treatment Health Maintenance Due Date Last Done Comments Cervical Cancer Screening Pa p Smear (Age 30 to 64) Every 3 Years 1960 Colorectal Cancer Screening Colonoscopy (10 Years) 1960 Annual Physical 01/07/1963 Hepatitis C 01/07/1978 DTaP, Tdap and Td Vaccines ( 1 - Tdap) 01/07/1979 Cervical Cancer Screening Pa p with HPV Testing (Age 30 to 64) Every 5 Years 01/07/1990 Cervical Cancer Screening wi th HPV 01/07/1990 Mammogram Screening 2000 Pneumococcal Vaccine: 50+ Years (1 of 1 - PCV) 01/07/2010 Zoster Vaccines (1 of 2) 01/07/2010 COVID-19 Vaccine (3 - 2023-2 5 season) 2024 07/22/2020, 06/24/2020 RSV Immunization or 60+ Years (1 - 1-dose 75+ series) 01/07/2035 Meningococcal B Vaccine Aged Out No l onger eligible based on patient's age to complete this topic Meningococcal Vaccine Aged Out No neo gricel eligible based on patient's age to complete this topic RSV Immunizations Under 20 Months Aged Out No longer eligible b ased on patient's age to complete this topic Insurance [employer] OPEN ACCESS [facility] Care Teams Poultry Processing Supervisor Relationship Specialty Start Date End Date Narendra Calderón MD [address] [place] [phone] PCP - General FAMILY PRACTICE 11/06/20
--- OUTSIDE RECORDS SUMMARY | 2024-10-21 08:07 | XMS_ITS ---
Author Organization Unknown Address [address] [place] [phone] Phone Care Team Providers Care Laminator Name Role Phone LEAH LAMAR Attending Unavailable [...] em Smoking History Never smoker (Never Smoked) [id number] SNOMED CT Sex Female Hospital Discharge Instructions [...] Code Sys tem Trochanteric bursitis, right hip 07/26/2024 SNOMED-CT Personal Care Team Section Performer Name Performer Role Active Date Inactive Da REILLY Trejo PCP - Primary care physician 2020-10-20 2024-04-21 REILLY NAVARRO PCP - Primary care physician 2024-04-21 2024-04-21 REILLY NAVARRO PCP - Primary care physician 2024-04-21 2024-04-21
--- OUTSIDE RECORDS SUMMARY | 2024-10-21 08:07 | XMS_ITS ---
Author Organization Unknown Address [address] [place] [phone] Phone Care Team Providers Care Bunch Maker Name Role Phone LEAH LAMAR Attending Unavailable [...] em Smoking History Never smoker (Never Smoked) 140600033 SNOMED CT Sex Female Hospital Discharge Instructions [...] Code Sys tem Trochanteric bursitis, right hip 06/24/2024 SNOMED-CT Personal Care Team Section Performer Name Performer Role Active Date Inactive Da REILLY Trejo PCP - Primary care physician 2020-10-20 2024-04-21 REILYL NAVARRO PCP - Primary care physician 2024-04-21 2024-04-21 REILLY NAVARRO PCP - Primary care physician 2024-04-21 2024-04-21
--- OUTSIDE RECORDS SUMMARY | 2024-10-21 08:07 | XMS_ITS ---
Author Organization Unknown Address [address] [place] [phone] Phone Care Team Providers Care Truck Driver Helper Name Role Phone LEAH LAMAR Attending [...] em Smoking History Never smoker (Never Smoked) 885068975 SNOMED CT Sex Female Hospital Discharge Instructions [...] Code Sys tem Trochanteric bursitis, right hip 05/04/2024 SNOMED-CT Personal Care Team Section Performer Name Performer Role Active Date Inactive Da REILLY Trejo PCP - Primary care physician 2020-10-20 2024-04-21 REILLY NAVARRO PCP - Primary care physician 2024-04-21 2024-04-21 REILLY NAVARRO PCP - Primary care physician 2024-04-21 2024-04-21
== END 2024-10-21 08:03 | disposition home or self-care (01) ==
LOC: CHSIMG 08:03
PROVIDERS: PCP Family Medicine; Visit Provider Registered Nurse
DX: N83.209 Unspecified ovarian cyst, unspecified side (principal)
CPT/HCPCS: 76830

== ENCOUNTER 2024-11-18 09:57 | Outpatient (CLI) | payer OTHER, SELFPAY ==
--- NOTE | ~2024-11-18 | MR_ITS ---
MRI of the thoracic spine Clinical History: Neurogenic claudication Technique: Axial T2-weighted and gradient images, and sagittal T1-weighted, T2-weighted, and STIR luba ges were acquired. Findings: There is no acute fracture or subluxation of the thoracic spine. There is dextroscoliosis. No abnormal bone marrow signal abnormality seen. There is multilevel mild to moderate degenerative disc narrowing at the mid thoracic spine. There is very small central disc protrusion at T8-T9. No other significant disc bulge or herniation seen. No s mahin canal stenosis or cord compression identified at any thoracic level. There is severe bilateral neural foraminal narrowing at T9-T10 and severe left neural foraminal narrowing at T10-T11. No abnormal signal seen in the spinal cord. There is moderate to advanced multilevel facet arthropath y throughout the lower thoracic spine. Paravertebral soft tissues are unremarkable. Impression: Dextroscoliosis with neural foraminal narrowing at T9-T10 and T10-T11, as detailed above. Extensive facet arthropathy at the lower thoracic spine. Multilevel moderate degenerative disc narrow ing at the mid thoracic spine. Reviewed, dictated and finalized at [facility]. Impression: Dextroscoliosis with neural foraminal narrowing at T9-T10 and T10-T11, as detlee ann led above. Extensive facet arthropathy at the lower thoracic spine. Multilevel moderate de generative disc narrowing at the mid thoracic spine.
--- NOTE | ~2024-11-18 | CT_ITS ---
EXAMINATION: CT thoracic lumbar wo con DATE: 11/18/2024 12:06 INDICATION: Idiopathic scoliosis with mid to low back pain and neurogenic claudication TECHNIQUE: Computed tomography (CT) of the thoracic and lumbar spine was performed without intravenou s contrast. Automated exposure control and iterative reconstruction technique were employed. The dose -length product was 1410.82 mGy-cm. COMPARISON: None FINDINGS: 20 degrees thoracic levoscoliosis measured between T1 and T9, 30 degree dextrorotoscoliosis between T 9 and L1 and 25 degree lumbar levorotoscoliosis measured between L1 and L5. 4 mm anterolisthesis L4 o n L5. Sagittal alignment of the thoracic and lumbar spine is otherwise normal. Vertebral body heights are normal. No fracture. There is moderate disc height loss at T7-T8 and T8-T9 and with sided predominance at T3-T4 through T6 -T7. Severe left-sided disc height loss with degenerative endplate changes at T9-T10 and T10-T11 and mild to moderate left-sided predominant disc height loss at T11-T12 and T12-L1. Mild disc height loss at T2-T3 and T3-T4. There are disc protrusions, left paracentral at T5-T6 and centrally at T6-T7 and T8-T9. Mild disc bulge at T9-T10. There is mild central canal stenosis at each of these levels. Ther e is multilevel cervical facet osteoarthritis, severe on the left at T1-T2 through T4-T5 and T10-T11 through T12-L1 and on the right at T4-T5 through T7-T8, T9-T10 and T11-T12. Mild to moderate facet os teoarthritis the remaining levels. This contributes to multilevel bilateral neural foraminal stenosis , moderate severity on the left at T10-T11 and mild at many of the remaining bilateral thoracic neura l foramina. Calcified right lower lobe nodule along with calcified right hilar and mediastinal lymph nodes consistent with old granulomatous disease. Small sliding-type hiatal hernia. Paravertebral soft tissues are unremarkable. Mild disc height loss at L1-L2. Mild to moderate left-sided predominant disc height loss at T12-L1 an d right sides predominant disc height loss at L2-L3. There is severe right-sided disc height loss at L4-L5 and severe left-sided disc height loss at L5-S1, both with associated vacuum phenomena and dege nerative endplate changes in the region of severe disc height loss. 12 mm exophytic cyst at the upper pole the right kidney. Mild bilateral sacroiliac osteoarthritis. Paravertebral soft tissues are othe rwise unremarkable. The following disc levels are specifically discussed: T12-L1: Disc is bulging. There is mild right and moderate left facet joint osteoarthritis. There is m ild left neural foraminal stenosis. There is mild central canal stenosis. L1-L2: Disc is bulging. There is mild right and moderate left facet joint osteoarthritis. There is mi ld bilateral neural foraminal stenosis. There is mild central canal stenosis. L2-L3: Disc is bulging. There is mild left and severe right facet joint osteoarthritis. There is mode rate right neural foraminal stenosis. There is mild to moderate central canal stenosis. L3-L4: Disc is bulging. There is mild left and severe right facet joint osteoarthritis. There is mild to moderate left and moderate right neural foraminal stenosis. There is mild central canal stenosis. L4-L5: Disc is bulging. There is severe bilateral facet joint osteoarthritis. There is mild left and moderate right neural foraminal stenosis. There is moderate to severe central canal stenosis. L5-S1: Disc is bulging. There is moderate right and severe left facet joint osteoarthritis. There is moderate left neural foraminal stenosis. There is no central canal stenosis. IMPRESSION: 1. 30 degree lower thoracic dextro rotoscoliosis with 20 degree mid to upper thoracic levoscoliosis a nd 25 degrees lumbar levorotoscoliosis. 2. Moderate thoracic and severe lumbar spondylosis. Reviewed, dictated and finalized at location [facility]. IMPRESSION: 1. 30 degree lower thoracic dextro rotoscoliosis with 20 degree mid to upper th oracic levoscoliosis and 25 degrees lumbar levorotoscoliosis. 2. Moderate thoracic and severe lumbar spondylosis.
--- NOTE | ~2024-11-18 | MR_ITS ---
MRI of the lumbar spine Clinical History: Neurogenic claudication Technique: Axial T2-weighted images, and sagittal T1-weighted, T2-weighted, and T2 fat-sat images wer e acquired. Findings: There is mild levoscoliosis of the lumbar spine. There is 3 mm anterolisthesis of L4 over L 5. No fracture evident. No suspicious bone marrow signal abnormality seen. At L1-L2, there is minimal disc bulge and moderate facet arthropathy. No central canal stenosis or de finite neural foraminal narrowing. At L2-L3, there is mild disc bulge with severe facet arthropathy. No central canal stenosis. There is moderate to advanced right neural foraminal narrowing. Left neural foramen preserved. L3-L4, there is moderate to advanced degenerative disc narrowing. There is mild disc bulge with moder ate facet arthropathy. No central canal stenosis. There is moderate to advanced right neural foramina l narrowing. Left neural foramen preserved. At L4-L5, there is diffuse disc bulge with severe facet arthropathy, resulting in severe spinal canal stenosis/thecal sac compression. There is severe bilateral neural foraminal compromise. At L5-S1, there is degenerative disc narrowing with diffuse disc bulge and severe facet arthropathy. No central canal stenosis. There is severe left neural foraminal narrowing. Right neural foramen pres erved. Paravertebral soft tissues are unremarkable. Impression: Severe degenerative spondylosis at L4-L5, as detailed above. Moderate to advanced degenerative spondy losis at L2-L3, L3-L4, and L5-S1, as detailed above. Levoscoliosis of the lumbar spine. 3 mm anterolisthesis of L4 over L5. Reviewed, dictated and finalized at [facility]. Impression: Severe degenerative spondylosis at L4-L5, as detailed above. Moderate to advanc ed degenerative spondylosis at L2-L3, L3-L4, and L5-S1, as detailed above. Levoscoliosis of the lumbar spine. 3 mm anterolisthesis of L4 over L5.
--- OUTSIDE RECORDS SUMMARY | 2024-11-18 10:00 | XMS_ITS ---
Author Organization Unknown Address [address] [place] [phone] Phone Care Team Providers Care Buffing Wheel Raker Name Role Phone LEAH LAMAR Attending Unavailable [...] em Smoking History Never smoker (Never Smoked) [id number] SNOMED CT Sex Female Hospital Discharge Instructions [...]
--- OUTSIDE RECORDS SUMMARY | 2024-11-18 10:01 | XMS_ITS ---
Author Organization Unknown Address [address] [place] [phone] Phone Care Team Providers Care Senior Sustainability Advisor Name Role Phone LEAH LAMAR Attending Unavailable [...] em Smoking History Never smoker (Never Smoked) [id number] SNOMED CT Sex Female Hospital Discharge Instructions [...]
--- OUTSIDE RECORDS SUMMARY | 2024-11-18 10:01 | XMS_ITS | Clinical Summary ---
Author Organization [facility] Address [address] [place] [address] Phone Care Team Providers Care Board Liner Operator Name Role Phone Dorothy Small MD Primary Care Provider Allergies Active Allergy Reactions Criticality Noted Date Comments Latex Rash Low 10/27/2024 Unclassified Drug Unknown 10/27/2024 Patient states she has eczema and had an allergy test- reactions to Neomycin, Sulfa, Bacitracin, Nickel, Hytrocortisone, creams, lotions, fluocinoline. Medications Dupixent Pen 300 mg/2 mL Pen Injector 10/07/2024 Active naproxen (NAPROSYN) 500 mg tablet 10/18/2024 Active cyclobenzaprine (FLEXERIL) 5 mg Tablet take 1 tablet by mouth at bedtime as needed 07/21/2024 Active ACETAMINOPHEN ORAL Take by mouth. Active ibuprofen (MOTRIN) 200 mg tablet Take 200 mg by mouth every 6 hours as needed for Pain, Mild. Active CALCIUM CARBONATE-VITAM IN D3 ORAL Take by mouth. Active Active Problems Problem Noted Date Diagnosed Date Primary osteoarthritis of both hips 11/04/2024 Neurogenic claudication due to lumbar spinal jere nosis 10/27/2024 Adolescent idiopathic scoliosis of thoracic manisha on 10/27/2024 Degenerative spondylolisthesis 10/27/2024 Encounters Date Type Department Care Team Description 11/10/2024 External Device Data [facility]STRACTION Provider, Abstract 11/09/2024 External Device Data [facility] Provider, Abstract 11/02/2024 External Device Data [facility] Provider, Abstract 11/02/2024 External Device Data [facility] Provider, Abstract 11/02/2024 External Device Data [facility] Provider, Abstract 10/27/2024 11:58 AM CDT - 10/27/2024 11:59 PM CDT Hospital Encounter [facility] [place] [address] [place] [address] Fernando Lou MD Discharge Disposition: Home or Self Care 10/27/2024 9:45 AM CDT Office Visit [facility] Neuro[facility] [address] [facility] [address] [facility] [address] [place] [address] Fernando Lou MD Neurogenic claudication due to lumbar spinal stenosis (Primary Dx); Adolescent idiopathic scoliosis of thoracic region; Degenerative spondylolisthesis; Primary osteoarthritis of both hips 10/27/2024 Telephone [facility] Neurosurgery S [facility] [address] [facility] [address] [place] [address] Fernando Lou MD Imaging Auth 10/04/2024 Abstract [facility] Neurosurgery [address] [facility] [address] [facility] [address] [place] [phone] Provider, Abstract from Last 3 Months Family History Relation Name Status Comments Father Mother Social History Tobacco Use Types Packs/Day Years Used Date Smoking Tobacco: Never Smokeless Tobacco: Never Tobacco Cessation:Counseling Given: Not Answered Alcohol Use Standard Drinks/Week Comments Yes 0 (1 standard drink = 0.6 oz pur e alcohol) social Comments Unknown Sex and Gender Information Value Date Recorded Sex Assigned at Not on file Legal Sex Female 8:44 AM CDT Gender Identity Not on file Sexual Orientation Not on file Last Filed Vital Signs Vital Sign Reading Time Taken Comments Blood Pressure 154/99 10/27/2024 9:53 AM CDT Pulse 83 10/27/2024 9:53 AM CDT Temperature 36.5 C (97.7 F) 10/27/2024 9:53 AM CDT Respiratory Rate - - Oxygen Saturation - - Inhaled Oxygen Concentration - - Weight 87.1 kg (192 lb) 10/27/2024 9:53 AM CDT Height 167.6 cm (5' 6) 10/27/2024 9:53 AM CDT Body Mass Index 30.99 10/27/2024 9:53 AM CDT Plan of Treatment Health Maintenance Due Date Last Done Comments Pre-Diabetes and Diabetes Screening 1960 HPV/Cotest (21-29) 01/07/1981 CERVICAL CANCER SCREENING 01/07/1990 HPV/Cotest (30-65) 01/07/1990 PAP SMEAR 01/07/1990 BREAST CANCER SCREENING 2000 COLORECTAL SCREENING 01/07/2005 Colorectal Cancer Screening 01/07/2005 FIT-DNA Q 3 years 01/07/2005 FIT/FOBT Q 1 year 01/07/2005 Flex Sig/CT Colonography Q 5 years 01/07/2005 INFLUENZA VACCINE (#1) 2024 , 03/27/2022, 06/13/2021 COVID-19 Vaccine (2023-2 5 season) 2024 06/04/2023, 10/16/2022, 02/08/2022, Additional history exists DTAP/TDAP/TD VACCINES (2 - T d or Tdap) 03/27/2032 03/27/2022 RSV VACCINE (60+ or ) (1 - 1-dose 75+ series) 01/07/2035 ZOSTER VACCINE Completed 08/28/2022, 04/12/2022 Procedures Procedure Name Priority Date/Time Associated Diagnosis Comments XR SPINE SCOLIOSIS 2 VW STANDING Routine 10/27/2024 12:10 PM CDT Neurogenic claudication due to lumbar spinal stenosis Adolescent idiopathic scoliosis of thoracic region Degenerative spondylolisthesis from Last 3 Months Results * XR SPINE SCOLIOSIS 2 VW STANDING (10/27/2024 12:10 PM CDT) Anatomical Region Laterality Modality Spine Computed Radiogr aphy 10/27/2024 12:1 0 PM CDT Narrative 10/27/2024 1:24 PM CDT Scoliosis two views standing HISTORY: Scoliosis FINDINGS: No prior. Between T1 and T8 there is a left 22 degree curvature. Between T8 and L3 there is a 46 degree right curvature. No segmentation anomaly is seen. No fracture or bony lesion is seen. Lungs are clear. Sagittal alignment is unremarkable. DICTATION LOCATION: Location [address] [place] [address] Procedure Note West Gillespie MD - 10/27/2024 Scoliosis two views standing HISTORY: Scoliosis FINDINGS: No prior. Between T1 and T8 there is a left 22 degree curvature. Between T8 and L3 there is a 46 degree right curvature. No segmentation anomaly is seen. No fracture or bony lesion is seen. Lungs are clear. Sagittal alignment is unremarkable. DICTATION LOCATION: Location [address] [place] [address] us Fernando Lou MD DIAGNOSTIC IMAGING ORDERABLES Final Result from Last 3 Months Insurance [employer] PPO Care Teams Board Liner Operator Relationship Specialty Start Date End Date Dorothy Small MD [address] [place] [phone] PCP - General Family Practice 10/28/24
--- OUTSIDE RECORDS SUMMARY | 2024-11-18 10:01 | XMS_ITS | Data Portability ---
Author Organization [facility], [address] [place] [address] ([place]) Address [address] [place] [id number] Care Team Providers Care [employer] Teacher Name Role Phone NIRALI DEMPSEY Primary Care Provider [phone] Assessment Encounter Date Assessment Date Assessment LastModified [...] soap only. Avoid harsh soaps such as Lebanese [place] - Avoid fragranced products, perfumes, candles, air fresheners, no dryer sheets - Recommend free and clear shampoo, free and clear detergent. [place] patch testing was read at 72 hours. [...] soap only. Avoid harsh soaps such as Lebanese [place] - Avoid fragranced products, perfumes, candles, air fresheners, no dryer sheets - Recommend free and clear shampoo, free and clear detergent. North Spanish patch testing was read at 72 hours. [...] hx of HSV. - Reviewed A/R/B of dupilumab([email or web address]). Reviewed side effects of increased HSV infection, [...] soap only. Avoid harsh soaps such as Lebanese [place] - Avoid fragranced products, perfumes, candles, air fresheners, no dryer sheets - Recommend free and clear shampoo, free and clear detergent. [place] Spanish patch testing was read at 72 hours. [...] hx of HSV. - Reviewed A/R/B of dupilumab([email or web address]). Reviewed side effects of increased HSV infection, [...] soap only. Avoid harsh soaps such as Lebanese [place] - Avoid fragranced products, perfumes, candles, air fresheners, no dryer sheets - Recommend free and clear shampoo, free and clear detergent. [place] Spanish patch testing was read at 72 hours. [...] hx of HSV. - Reviewed A/R/B of dupilumab([email or web address]). Reviewed side effects of increased HSV infection, [...] any questions or concerns in the meantime. [email or web address] Not available 09/29/2024 12:25:46 Plan of Treatment [...] Organization Details Recorded Time Adult atopic dermatitis 217997137 Active 2024 Adilene Lenz [facility] 5 10:41:21 Lentigo - freckle 025390691 Active 2024 Loren Tomasz [facility] 5 11:00:43 Melanocytic nevus of right upper limb 018174576 Active 2024 Loren Tomasz [facility] 5 11:00:43 Melanocytic nevus of left upper limb 7341759880031 03 Active 2023 Yenny Erlinda [facility] 4 16:40:40 Melanocytic nevus of right lower limb 2022464420838 08 Active 2023 Yenny Erlinda [facility] 4 16:40:45 Seborrheic keratosis 551220066 Active 2023 Yenny Erlinda [facility] 4 16:40:49 Atopic dermatitis 61866640 Active 2023 Tiffany Garcia [facility] 5 14:24:46 Problem Notes None recorded. [...] Address Organization Details Last Updated DateTime 04/12/2024 87086.59 g Jessica Ford [facility] 04/12/2024 16:30:57 Social History None recorded. Functional Status None recorded. Mental Status None recorded. Family History Nothing Reported. Medical History No medical history recorded. Gynecological HistoryNo gynecological history recorded. Obstetrics History GPAL:G 0 P 0 0 0 0 Past Encounters Encounter ID Performer Location Encounter Start Date Encounter Closed Date Diagnosis/Indication Diagnosis SNOMED-CT Code Diagnosis ICD10 Code Diagnosis Note [id number] [place]ois [place] [facility] [place] [facility] [place] [place] [address] [place] [address] 01/07/2024 16:07:48 01/07/2024 16:52:19 Melanocytic nevus of left upper limb [id number] 57075 D22.62 Melanocyti c nevus of right lower limb 7512055206 13150 D22.71 Seborrheic keratosis 394 887551 L82.1 History of Malignant melanoma 463353584 Z85.89 Atopic dermatitis 956527 01 L20.9 [id number] Kar[place]ois [place] [facility] [place] [facility] [place] [place] [address] [place] [address] 04/12/2024 16:17:43 04/12/2024 17:24:47 Melanocytic nevus of left upper limb 7980817813 47542 D22.62 Melanocyti c nevus of right lower limb 2650238950 06375 D22.71 Seborrheic keratosis 394 034042 L82.1 Atopic dermatitis 379490 01 L20.9 [id number] Karla Francois [place] [facility] [place] [facility] [place] [address] [place] [address] 07/12/2024 09:58:47 07/12/2024 10:50:43 Adult atopic dermatitis 882417188 L20.9 Medication prescription education, guidance and counseling 927077107 Z71.89 [id number] Karla Francois [place] [facility] [place] [facility] [place] [address] [place] [address] 08/11/2024 11:32:58 08/11/2024 12:52:26 Atopic dermatitis 69295590 L20.9 [id number] Karla Davidson APRN, [employer]ASH [employer]ER [facility] [place] [facility] [place] [address] [place] [address] 09/29/2024 10:06:46 09/29/2024 11:15:02 Melanocytic nevus of right upper limb 747777077 D22.61 Melanocyti c nevus of right lower limb 6344590330 61617 D22.71 Seborrheic keratosis 394 296233 L82.1 Lentigo - freckle 998574 006 L81.4 History of Malignant melanoma 378041982 Z85.820 Adult atop ic dermatitis 774647445 L20.9 Health Concerns Section Related Observation LastModified by Organization Detai ls LastModified Time None Recorded Concern Status LastModified by Organization Details LastModified Time None Recorded Advance Directives Directive None Recorded Payers Insurance Date Sequence Insurance Name Policy Number Policy Jurado Covered Member ID Jurado Member ID Guarantor Name 11/18/2024 1 [facility] [employer] [facility] [id number] Yoli Tati Jayce [id number] OI Yoli Eduardo Notes Date Note Type Note Provider Name and Address Organization Details Recorded Time 01/07/2024 text/html [facility] with HX melanoma. Denies concerns Karla Francois MD [address] [place] [address], [phone], [facility] 01/07/2024 18:21:02 04/12/2024 text/html [facility] hx melanoma and atopic dermatitis on ears/face Karla Francois MD [address] [place] [address], [phone], [facility] 04/14/2024 16:51:47 07/12/2024 text/html Pt presents for training of Dupixent injections. Karla Francois MD [address] [place] [address], [phone], [facility] 07/12/2024 16:45:01 08/11/2024 text/html Dupixent f/u Karla Francois MD [address] [place] [address], [phone], [facility] 08/11/2024 20:38:46 09/29/2024 text/html [facility] Patient was informed that Dr. Hodge is the supervising physician for Karla Davidson (Derm) and the physician is available for consultation if needed. Karla Davidson, IMAGING CLERK, [employer]ASH [employer]ULER [address] [place] [address], [phone], [facility] 09/29/2024 12:26:15 OBGyn Episode No OBEpisode recorded.
--- OUTSIDE RECORDS SUMMARY | 2024-11-18 10:02 | XMS_ITS ---
Author Organization Unknown Address [address] [place] [phone] Phone Care Team Providers Care Patrol Deputy Sheriff Name Role Phone LEAH LAMAR Attending Unavailable [...] em Smoking History Never smoker (Never Smoked) [id number] SNOMED CT Sex Female Hospital Discharge Instructions [...]
== END 2024-11-18 09:58 | disposition home or self-care (01) ==
PROVIDERS: PCP Family Medicine
DX: M48.062 Spinal stenosis, lumbar region with neurogenic claudication (principal); M41.124 Adolescent idiopathic scoliosis, thoracic region; M43.10 Spondylolisthesis, site unspecified; M41.84 Other forms of scoliosis, thoracic region; M43.06 Spondylolysis, lumbar region; M43.04 Spondylolysis, thoracic region
CPT/HCPCS: 72128; 72131; 72146; 72148